=== PATIENT | male | born 1965 | race Caucasian/White ===

== ENCOUNTER 2024-03-19 16:20 | Emergency (ER) | payer MEDICAID ==
[~2024-03-19] VITALS: Ht 167.6 cm; Wt 85.0 kg
[2024-03-19 16:34] VITALS: O2SAT 98
[2024-03-19] MEDS ORDERED: AMLO2.5T45 MT (18:48)
[2024-03-19] MEDS ORDERED: BENA10TA74 MT (18:48)
[2024-03-19 18:58] VITALS: BP 150/70; PULSE 65; RESP 18; TEMP 36.94740; O2SAT 98
== END 2024-03-19 18:59 | disposition home or self-care (01) ==
LOC: ER 16:20 → EDBD 16:20 → ER 18:59
DX: I10 Essential (primary) hypertension (principal); Z76.0 Encounter for issue of repeat prescription
CPT/HCPCS: 99283